=== PATIENT | female | born 1985 | race Caucasian/White ===

== ENCOUNTER 2017-02-22 14:49 | Emergency (ER) | payer MEDICAID ==
[2017-02-22 15:03] VITALS: BP 143/89
--- NOTE | 2017-02-22 15:38 | ED Physician Documentation ---
History of Present Illness - Stated complaint Stated Complaint: BLURRED VISION - Chief complaint Chief Complaint: General - History obtained from History obtained from: Patient - History of Present Illness Timing: Other (While driving today she developed crescents in her eyes, laterally on the left and superolaterally on the right where she saw a Z-shaped waves with rainbow colors. In total this lasted about 20 minutes and then went away, there was no headache.) Review of Systems Eyes: denies: Discharge, Irritation Ears: denies: Loss of hearing, Ear pain, Tinnitus/ringing, Foreign body Nose: denies: Rhinorrhea / runny nose, Congestion PD PAST MEDICAL HISTORY - Past Medical History Past Medical History: No - Past Surgical History Past Surgical History: No - Present Medications Home Medications: Ambulatory Orders Medication Instructions Recorded Confirmed No Known Home Medications [No 02/22/17 02/22/17 Known Home Medications] - Allergies Allergies/Adverse Reactions: Allergies Allergy/AdvReac Type Severity Reaction Status Date / Time No Known Drug Allergies Allergy Verified 02/22/17 15:07 - Social History Does the pt smoke?: No Smoking Status: Never smoker Does the pt drink ETOH?: No Does the pt have substance abuse?: No - Immunizations Immunizations are current?: No Immunizations: TDAP >10years/unknown PD ED PE NORMAL - Vitals Vital signs reviewed: Yes - General General: Alert and oriented X 3, No acute distress - HEENT HEENT: PERRL, EOMI - Neck Neck: Supple, no meningeal sign, No bony TTP - Neuro Neuro: Alert and oriented X 3, vest finisher 2-12 intact, No motor deficit, No sensory deficit, Normal speech, Other (NIHSS zero) - Psych Psych: Normal mood, Normal affect Results - Vitals Vitals: Vital Signs - 24 hr 02/22/17 14:59 Temperature 36.8 C Heart Rate 103 H Respiratory 16 Rate Blood Pressure 143/89 H O2 Saturation 100 Oxygen O2 Source Room air PD MEDICAL DECISION MAKING - ED course ED course: Her description of bilateral aura type wavey vision in the lateral vision in both eyes is very consistent with ophthalmic migraine. Departure - Departure Disposition: 01 Home, Self Care Clinical Impression: Ophthalmic migraine Condition: Good Record reviewed to determine appropriate education?: Yes Comments: Your symptoms are very consistent with ophthalmic migraine. Followup with your eye DrPadmini at your convenience. Return if worse or if new symptoms develop. Your blood pressure was elevated today on check in to the emergency department. This does not mean that you have hypertension, it is a common phenomenon to check into the emergency department and have elevated blood pressure. I recommend that you see your primary care physician within the week to have it rechecked when you're feeling better.
== END 2017-02-22 15:42 | disposition home or self-care (01) ==
LOC: ED 14:49
DX: G43.B0 Ophthalmoplegic migraine, not intractable (principal); R03.0 Elevated blood-pressure reading, without diagnosis of hypertension
CPT/HCPCS: 99283

== ENCOUNTER 2024-04-23 07:00 | Outpatient (CLI) | payer MEDICAID ==
--- NOTE | 2024-04-23 17:05 | XRAY Report ---
PROCEDURE: Forearm LT INDICATIONS: LEFT FOREARM PAIN TECHNIQUE: 2 views of the forearm were acquired. COMPARISON: None. FINDINGS: Bones: No fractures or dislocations. No suspicious bony lesions. Soft tissues: No suspicious soft tissue calcifications or masses. IMPRESSION: No visualized acute fracture or dislocation. However, occult injury cannot be excluded. Recommend torsten rt interval imaging follow-up in 7-10 days as clinically indicated for additional evaluation. Reviewed by: Emilia Espinal MD on 04/23/2024 5:03 PM PDT Approved by: Emilia Espinal MD on 04/23/2024 5:03 PM PDT Station ID: [id number]
== END 2024-04-23 23:59 | disposition home or self-care (01) ==
LOC: DI.S 07:00
PROVIDERS: ATTEND Registered Nurse
DX: M79.632 Pain in left forearm (principal)